=== PATIENT | female | born 1950 | race Caucasian/White ===

== ENCOUNTER 2016-12-21 19:00 | Emergency (ER) | payer MEDICARE ==
[~2016-12-21] VITALS: Ht 167.6 cm; Wt 93.0 kg
[2016-12-21 19:07] VITALS: BP 135/103; PULSE 75; RESP 18; TEMP 97.6; O2SAT 97
[2016-12-21] MEDS ORDERED: SODIUM CHLOR 0.9% 1000 ML INJ 1,000 ML IV SCH (19:39)
[2016-12-21] MEDS ORDERED: METOCLOPRAMIDE HCL 10 MG/2 ML VIAL IV PUSH ONE (19:45)
[2016-12-21] MEDS ORDERED: SODIUM CHLORIDE 0.9% FLUSH 10 ML FLUSH IV FLUSH PRN (19:45)
[2016-12-21 19:54] LABS: AUTOMATED NEUTROPHIL # 6.8 TH/MM3 (1.8-7.7); BASOPHIL # 0.1 TH/MM3 (0-0.2); BASOPHIL % 0.8 % (0.0-2.0); BLOOD, URINE MOD (NEG); EOSINOPHIL # 0.1 TH/MM3 (0-0.4); EOSINOPHIL % 1.2 % (0.0-4.0); GLUCOSE,URINE NEG (NEG); HEMATOCRIT 39.5 % (35.0-46.0); HEMO FLAGS DIFF FINAL; KETONE, URINE NEG (NEG); LYMPH % 17.8 % (9.0-44.0); LYMPHOCYTE # 1.6 TH/MM3 (1.0-4.8); MEAN CELL VOLUME 80.6 FL (80.0-100.0); MEAN CORPUSCULAR HEMOGLOBIN 26.8 PG (27.0-34.0); MEAN CORPUSCULAR HGB CONC 33.3 % (32.0-36.0); MONO % 4.6 % (0.0-8.0); NEUT % 75.6 % (16.0-70.0); NITRITE,URINE NEG (NEG); PH, URINE 5.5 (5.0-8.5); PLATELET COUNT 248 TH/MM3 (150-450); RED CELL DISTRIBUTION WIDTH 14.1 % (11.6-17.2)
[2016-12-21 19:55] LABS: URINE COLOR YELLOW (YELLW/STRAW)
[2016-12-21 20:02] VITALS: BP 173/84; PULSE 67; RESP 20; O2SAT 98
[2016-12-21 20:04] LABS: RBC, URINE 0-3 /hpf (0-3)
[2016-12-21 20:05] LABS: COMMENT (UR) CULTURE INDICATED; CULTURE IF INDICATED CULTURE INDICATED; HYALINE CAST, URINE 0-2 /lpf (RARE); MUCUS URINE MOD /lpf (OCC); WHITE BLOOD CELL CAST, URINE 0-2 /lpf
[2016-12-21 20:07] LABS: CHLORIDE 106 MEQ/L (98-107); POTASSIUM 3.6 MEQ/L (3.5-5.1); SODIUM (NA) 141 MEQ/L (136-145)
[2016-12-21 20:10] LABS: ANION GAP 8 MEQ/L (5-15); BICARBONATE 26.6 MEQ/L (21.0-32.0)
[2016-12-21 20:11] LABS: BLOOD UREA NITROGEN 14 MG/DL (7-18)
[2016-12-21 20:13] LABS: ALT (GPT) 35 U/L (10-53)
--- NOTE | 2016-12-21 20:13 | PD ---
HPI Chief Complaint: Dizziness Time Seen by Provider: 19:34 Travel History International Travel<30 days: No Contact w/Intl Traveler<30days: No Traveled to known affect area: No History of Present Illness HPI 66-year-old female here for evaluation of dizziness/lightheadedness, nausea, vomiting, and right ear pain. The patient experienced these symptoms yesterday evening and again this evening after a full day at work. Patient describes more lightheadedness and dizziness. She had several episodes of vomiting earlier today. She has not yet had diarrhea, but feels as though she may start having loose bowel movements. No abdominal pain. No fevers. No chest pain or dyspnea. No urinary symptoms. Patient reports pain in her right ear that has been intermittent since July of this year. FORMERLY [facility] Past Medical History Diminished Hearing: No Gastrointestinal Disorders: Yes (ESOPHAGEAL STRICTURE) Hypertension: Yes Tetanus Vaccination: Unknown Influenza Vaccination: Yes ?: Not Menopausal: Yes : 4 Para: 4 Past Surgical History Surgical History: No Previous Surgery Other Surgery: Yes (ESOPHAGEAL STRETCHING) Social History Alcohol Use: No Tobacco Use: No Substance Use: No Allergies-Medications (Allergen,Severity, Reaction): Coded Allergies: No Known Allergies (Verified , 12/21/16) Reported Meds & Prescriptions Reported Meds & Active Scripts Active No Active Prescriptions or Reported Medications Review of Systems Except as stated in HPI: all other systems reviewed are Neg Physical Exam Narrative GENERAL: Well-developed, well-nourished, awake, alert, comfortable, no acute distress. SKIN: Focused skin assessment warm/dry. No rash. No pallor. HEAD: Atraumatic. Normocephalic. EYES: Pupils equal and round. No scleral icterus. No injection or drainage. ENT: Mucous membranes pink and moist. Bilateral tympanic members and external auditory canals are normal. NECK: Trachea midline. No JVD. No nuchal rigidity. CARDIOVASCULAR: Regular rate and rhythm. No murmur appreciated. RESPIRATORY: No accessory muscle use. Clear to auscultation. Breath sounds equal bilaterally. GASTROINTESTINAL: Abdomen soft, non-tender, nondistended. MUSCULOSKELETAL: No obvious deformities. No clubbing. No cyanosis. No edema. NEUROLOGICAL: Awake and alert. No obvious cranial nerve deficits. Motor grossly within normal limits. Normal speech. No focal deficit. PSYCHIATRIC: Appropriate mood and affect; insight and judgment normal. Data Data Last Documented VS Vital Signs Date Time Temp Pulse Resp B/P Pulse Ox O2 Delivery O2 Flow Rate FiO2 12/21/16 20:52 67 20 161/77 12/21/16 20:06 97 12/21/16 19:07 97.6 Orders Complete Blood Count With Diff (12/21/16 19:39) Comprehensive Metabolic Panel (12/21/16 19:39) Urinalysis - C+S If Indicated (12/21/16 19:39) Iv Access Insert/Monitor (12/21/16 19:39) Ecg Monitoring (12/21/16 19:39) Oximetry (12/21/16 19:39) Sodium Chlor 0.9% 1000 Ml Inj (Ns 1000 M (12/21/16 19:39) Sodium Chloride 0.9% Flush (Ns Flush) (12/21/16 19:45) Electrocardiogram (12/21/16 19:39) Metoclopramide Inj (Reglan Inj) (12/21/16 19:45) Ct Brain W/O Iv Contrast(Rout) (12/21/16 ) Urine Culture (12/21/16 19:50) Ceftriaxone Inj (Rocephin Inj) (12/21/16 20:15) Ondansetron Inj (Zofran Inj) (12/21/16 21:15) Labs Laboratory Tests Test 12/21/16 19:50 White Blood Count 9.0 TH/MM3 Red Blood Count 4.90 MIL/MM3 Hemoglobin 13.1 GM/DL Hematocrit 39.5 % Mean Corpuscular Volume 80.6 FL Mean Corpuscular Hemoglobin 26.8 PG Mean Corpuscular Hemoglobin 33.3 % Concent Red Cell Distribution Width 14.1 % Platelet Count 248 TH/MM3 Mean Platelet Volume 7.9 FL Neutrophils (%) (Auto) 75.6 % Lymphocytes (%) (Auto) 17.8 % Monocytes (%) (Auto) 4.6 % Eosinophils (%) (Auto) 1.2 % Basophils (%) (Auto) 0.8 % Neutrophils # (Auto) 6.8 TH/MM3 Lymphocytes # (Auto) 1.6 TH/MM3 Monocytes # (Auto) 0.4 TH/MM3 Eosinophils # (Auto) 0.1 TH/MM3 Basophils # (Auto) 0.1 TH/MM3 CBC Comment DIFF FINAL Differential Comment Urine Color YELLOW Urine Turbidity CLEAR Urine pH 5.5 Urine Specific [place] 1.025 Urine Protein 30 mg/dL Urine Glucose (UA) NEG mg/dL Urine Ketones NEG mg/dL Urine Occult Blood MOD Urine Nitrite NEG Urine Bilirubin NEG Urine Leukocyte Esterase SMALL Urine RBC 0-3 /hpf Urine WBC 9-14 /hpf Urine Squamous Epithelial 6-8 /hpf Cells Urine Hyaline Casts 0-2 /lpf Urine White Blood Cell Casts 0-2 /lpf Urine Mucus MOD /lpf Microscopic Urinalysis Comment CULTURE INDICATED Sodium Level 141 MEQ/L Potassium Level 3.6 MEQ/L Chloride Level 106 MEQ/L Carbon Dioxide Level 26.6 MEQ/L Anion Gap 8 MEQ/L Blood Urea Nitrogen 14 MG/DL Creatinine 0.98 MG/DL Estimat Glomerular Filtration 57 ML/MIN Rate Random Glucose 106 MG/DL Calcium Level 9.7 MG/DL Total Bilirubin 0.4 MG/DL Aspartate Amino Transf 25 U/L (AST/SGOT) Alanine Aminotransferase 35 U/L (ALT/SGPT) Alkaline Phosphatase 152 U/L Total Protein 7.2 GM/DL Albumin 3.8 GM/DL [facility] Medical Decision Making Medical Screen Exam Complete: Yes Emergency Medical Condition: Yes Interpretation(s) EKG: Sinus, rate 67, normal axis, normal intervals, no acute ischemic abnormality. Differential Diagnosis Metabolic abnormality, intracranial abnormality, UTI, anemia, dehydration Narrative Course Initial vital signs show heart rate 75, blood pressure 135/103, pulse ox 97% on room air, oral temp of 97.6F. CBC is unremarkable. CMP is unremarkable. UA shows 30 protein, moderate occult blood, small leukocyte esterase, 9-14 wbc's , 6-8 squamous epithelial cells, moderate mucus, culture indicated. CT head: No acute intracranial abnormality. The patient was given a liter of normal saline IV, IV Reglan, IV Zofran, and a dose of IV Rocephin. On reassessment she is feeling improved. She is tolerating clear liquids in the emergency department. She is concerned about having possible gastric ulcers and is requesting a prescription for aciphex which I will gladly write for her. I will also give her prescription for Macrobid as well as Zofran. Patient is stable for discharge home with outpatient follow-up with a primary care physician this week. She was informed on when to return to the emergency department. She verbalizes understanding and agreement with plan. Diagnosis Primary Impression: UTI (urinary tract infection) Qualified Code: N39.0 - Urinary tract infection with hematuria, site unspecified Additional Impressions: Lightheadedness Nausea and vomiting Qualified Code: R11.2 - Non-intractable vomiting with nausea, unspecified vomiting type Referrals: Primary Care Physician 3 days Additional Instructions: Follow-up with a primary care physician this week. Take medications as prescribed. Return to the emergency department for worsening symptoms or any other concerns. Scripts Ondansetron Odt (Zofran Odt)4 Mg Tab4 Mg SL Q8HR PRN (Nausea/Vomiting) #30 TAB Ref 0 Prov:Addison Dunlap MD 12/21/16 Nitrofurantoin Monohydrate Macrocrystals (Macrobid)100 Mg [id number] Mg PO BID 5 Days Ref 0 Prov:Addison Dunlap MD 12/21/16 Rabeprazole (Aciphex)20 Mg Tab20 Mg PO DAILY #30 TAB Ref 0 Prov:Addison Dunlap MD 12/21/16 Disposition: 01 DISCHARGE HOME Condition: Stable Addison Dunlap MD Dec 21, 2016 20:13
[2016-12-21 20:14] LABS: AST (GOT) 25 U/L (15-37); GLOMERULAR FILTRATION RATE 57 ML/MIN (>89)
[2016-12-21 20:15] LABS: TOTAL BILIRUBIN ADULT 0.4 MG/DL (0.2-1.0)
[2016-12-21] MEDS ORDERED: cefTRIAXone INJ 1,000 MG in SODIUM CHLORIDE 0.9% INJ 100 ML IV ONE (20:15)
[2016-12-21 20:16] LABS: ALKALINE PHOSPHATASE 152 U/L (45-117)
--- NOTE | 2016-12-21 20:30 | RADHPO ---
EXAM DATE/TIME: 12/21/2016 20:03 [facility] COMPARISON: No previous studies available for comparison. INDICATIONS : Patient complains of headache and dizziness. RADIATION DOSE: 68.43 CTDIvol (mGy) MEDICAL HISTORY : Hypertension. Ulcers. esphogeal stricture SURGICAL HISTORY : esphogeal stretching ENCOUNTER: Initial ACUITY: 1 day PAIN SCALE: 8/10 LOCATION: cranial TECHNIQUE: Multiple contiguous axial images were obtained of the head. Using automated exposure control and adj ustment of the mA and/or kV according to patient size, radiation dose was kept as low as reasonably a chievable to obtain optimal diagnostic quality images. FINDINGS: CEREBRUM: The ventricles are normal for age. No evidence of midline shift, mass lesion, hemorrhage or acute in farction. No extra-axial fluid collections are seen. POSTERIOR FOSSA: The cerebellum and brainstem are intact. The 4th ventricle is midline. The cerebellopontine angle i s unremarkable. EXTRACRANIAL: The visualized portion of the orbits is intact. SKULL: The calvaria is intact. No evidence of skull fracture. CONCLUSION: No acute intracranial abnormality. Efren Hernandes MD on December 21, 2016 at 20:27 Board Certified Radiologist. This report was verified electronically.
[2016-12-21 20:52] VITALS: BP 161/77; PULSE 67; RESP 20
[2016-12-21] MEDS ORDERED: ONDANSETRON HCL 4 MG/2 ML VIAL IV PUSH ONE (21:15)
[2016-12-21] MEDS ORDERED: ZOFR4TAB3 SL (21:26)
[2016-12-21] MEDS ORDERED: MACR100C2 PO (21:26)
[2016-12-21] MEDS ORDERED: ACIP20TA6 PO (21:26)
[2016-12-21 21:38] VITALS: BP 153/81
--- NOTE | 2016-12-22 15:26 | EKG ---
Date Performed: 12/21/2016 Time Performed: 19:58:32 PTAGE: 66 years EKG: Sinus rhythm NORMAL ECG Compared to prior tracing no significant change PREVIOUS TRACING : 06/17/2016 08.30 DOCTOR: Raghavendra De La Vega Interpretating Date/Time 12/22/2016 15:25:27
== END 2016-12-21 21:40 | disposition home or self-care (01) ==
LOC: PHED 19:00
DX: N39.0 Urinary tract infection, site not specified (principal); R42 Dizziness and giddiness; R11.2 Nausea with vomiting, unspecified; B96.20 Unspecified Escherichia coli [E. coli] as the cause of diseases classified elsewhere; I10 Essential (primary) hypertension
CPT/HCPCS: 70450; 80053; 81001; 85025; 87077; 87086; 87186; 93005; 96365; 96375; 99285; J0696; J2405; J2765; J7030

== ENCOUNTER 2017-02-10 06:12 | Emergency (ER) | payer MEDICARE ==
[~2017-02-10] VITALS: Ht 167.6 cm; Wt 91.6 kg
[~2017-02-10 06:12] MED LIST: ACIP20TA6 PO; MACR100C2 PO; ZOFR4TAB3 SL
[2017-02-10 06:17] VITALS: BP 170/81; PULSE 61; RESP 14; TEMP 98; O2SAT 98
[2017-02-10] MEDS ORDERED: COLY4000S PO (06:38)
[2017-02-10] MEDS ORDERED: PANT40TA3 PO (06:38)
[2017-02-10] MEDS ORDERED: SODIUM CHLORIDE 0.9% FLUSH 10 ML FLUSH IVF PRN (06:45)
[2017-02-10] MEDS ORDERED: ONDANSETRON HCL 4 MG/2 ML VIAL IVP ONE (06:45)
--- NOTE | 2017-02-10 06:46 | PD ---
HPI Chief Complaint: GI Complaint Time Seen by Provider: 06:37 Travel History International Travel<30 days: No Contact w/Intl Traveler<30days: No Traveled to known affect area: No History of Present Illness HPI 67-year-old female presents to the emergency department by private transportation in the care of significant other for evaluation of nausea, vomiting, diarrhea and dizziness. No bilious emesis, no coffee ground emesis, no hematemesis, no hematochezia, or melena. Patient reports that she has had nausea and dizziness for several months. Patient reports she was seen here for the same symptoms approximately 1 month ago everything was okay except she was diagnosed with a UTI. Patient was recently started in the care of a new primary care provider who she has seen within the last 2 weeks and reportedly is starting to evaluate her for her complaint of nausea and dizziness. Patient also states that she has chronic GI issues and is intolerant of change in her dietary intake. Patient states that she was scheduled for a colonoscopy this morning and as part of her bowel prep she was supposed to be on a clear liquid diet and instructed to take the GoLYTELY prep. Patient states that she could not tolerate the GoLYTELY prep as it caused her to be very nauseated and very dizzy after drinking only 40 ounces of the prep. Patient also has been very intolerant of not eating for the past 24 hours as she states this also has made her dizziness and nausea worse. Patient denies headache, change in mentation, visual disturbance, change in speech, facial droop, neck pain, chest pain, palpitations, shortness of breath, abdominal pain, or constipation, has noted some urinary frequency and dysuria, denies any flank pain or back pain, and denies any new upper or lower extremity numbness tingling or weakness. Patient states that she did fill as if she might faint this morning. Patient denies any fever or chills. Patient reports that the reason she was scheduled for colonoscopy this morning as that since June 2016 when she was diagnosed with esophageal stricture and esophageal ulcers she has had ongoing follow-up with gastroenterology and they recommended that she go through a colonoscopy. Patient has been very hesitant to go through the procedure. Patient has been anxious about having the procedure. PFSH Past Medical History Narrative Medical Esophageal stricture, esophageal ulcers; no surgeries; denies tobacco use or alcohol use; nursing notes reviewed Diminished Hearing: No Gastrointestinal Disorders: Yes (ESOPHAGEAL STRICTURE,ULCERS) Hypertension: Yes Tetanus Vaccination: Unknown Menopausal: Yes : 4 Para: 4 Past Surgical History Other Surgery: Yes (ESOPHAGEAL STRETCHING) Social History Alcohol Use: No Tobacco Use: No Substance Use: No Allergies-Medications (Allergen,Severity, Reaction): Coded Allergies: No Known Allergies (Verified , 12/21/16) Reported Meds & Prescriptions Reported Meds & Active Scripts Active Reported Golytely 236 gm (Polyethylene Glycol/Electrolytes) 4,000 Ml Soln 4,000 Ml PO ONCE Pantoprazole (Pantoprazole Sodium) 40 Mg Tab 40 Mg PO DAILY Review of Systems Except as stated in HPI: all other systems reviewed are Neg General / Constitutional: No: Fever, Chills Eyes: No: Visual changes HENT: Positive: Lightheadedness, No: Headaches, Congestion, Neck Stiffness, Neck Pain Cardiovascular: No: Chest Pain or Discomfort, Palpitations, Diaphoresis, Syncope Respiratory: No: Cough, Shortness of Breath, Wheezing Gastrointestinal: Positive: Nausea, No: Vomiting, Abdominal Pain, Hematemesis , Hematochezia Genitourinary: Positive: Frequency, Dysuria Musculoskeletal: No: Myalgias, Arthralgias Skin: No Rash Neurologic: Positive: Dizziness, No: Weakness, Syncope, Focal Abnormalities, Coordination Problem Psychiatric: Positive: Anxiety Endocrine: No: Heat Intolerance Hematologic/Lymphatic: No: Easy Bruising Physical Exam Narrative GENERAL: Well-developed well-nourished female in no acute distress no respiratory distress; GCS 15 SKIN: Warm and dry. HEAD: Atraumatic. Normocephalic. EYES: Pupils equal and round. No scleral icterus. No injection or drainage. ENT: No nasal bleeding or discharge. Mucous membranes pink and moist. NECK: Trachea midline. No JVD. CARDIOVASCULAR: Regular rate and rhythm. RESPIRATORY: No accessory muscle use. Clear to auscultation. Breath sounds equal bilaterally. GASTROINTESTINAL: Abdomen soft, non-tender, nondistended. Hepatic and splenic margins not palpable. MUSCULOSKELETAL: Extremities without clubbing, cyanosis, or edema. No obvious deformities. NEUROLOGICAL: Awake and alert. No obvious cranial nerve deficits. Motor grossly within normal limits. Five out of 5 muscle strength in the arms and legs. Normal speech. PSYCHIATRIC: Appropriate mood and affect; insight and judgment normal. Data Data Last Documented VS Vital Signs Date Time Temp Pulse Resp B/P Pulse Ox O2 Delivery O2 Flow Rate FiO2 02/10/17 06:17 98.0 61 14 170/81 98 Orders Electrocardiogram (02/10/17 06:37) Basic Metabolic Panel (Bmp) (02/10/17 06:37) Complete Blood Count With Diff (02/10/17 06:37) Magnesium (Mg) (02/10/17 06:37) Troponin I (02/10/17 06:37) Urinalysis - C+S If Indicated (02/10/17 06:37) Chest, Single Ap (02/10/17 06:37) Ecg Monitoring (02/10/17 06:37) Iv Access Insert/Monitor (02/10/17 06:37) Oximetry (02/10/17 06:37) Ondansetron Inj (Zofran Inj) (02/10/17 06:45) Sodium Chloride 0.9% Flush (Ns Flush) (02/10/17 06:45) Orthostatic Vital Signs (02/10/17 06:37) Labs Laboratory Tests Test 02/10/17 06:50 White Blood Count 7.6 TH/MM3 Red Blood Count 4.84 MIL/MM3 Hemoglobin 13.1 GM/DL Hematocrit 39.9 % Mean Corpuscular Volume 82.3 FL Mean Corpuscular Hemoglobin 27.0 PG Mean Corpuscular Hemoglobin 32.7 % Concent Red Cell Distribution Width 14.5 % Platelet Count 281 TH/MM3 Mean Platelet Volume 8.1 FL Neutrophils (%) (Auto) 74.2 % Lymphocytes (%) (Auto) 17.4 % Monocytes (%) (Auto) 5.0 % Eosinophils (%) (Auto) 1.6 % Basophils (%) (Auto) 1.8 % Neutrophils # (Auto) 5.7 TH/MM3 Lymphocytes # (Auto) 1.3 TH/MM3 Monocytes # (Auto) 0.4 TH/MM3 Eosinophils # (Auto) 0.1 TH/MM3 Basophils # (Auto) 0.1 TH/MM3 CBC Comment DIFF FINAL Differential Comment MDM Medical Decision Making Medical Screen Exam Complete: Yes Emergency Medical Condition: Yes Medical Record Reviewed: Yes Interpretation(s) EKG: sinus bradycardia rate [address] elevation or injury pattern or ectopy noted Differential Diagnosis Arrhythmia, electrolyte disturbance, ACS, TIA, UTI, thyroid dysfunction, vasovagal near syncope Narrative Course Patient placed on monitor EKG performed IV access obtained specimens collected and sent for resulting orthostatic measurements performed. Patient administered Zofran for nausea. No focality identified on physical exam abdomen soft nontender. Care signed over to Miley German MD Feb 10, 2017 06:46
[2017-02-10 07:06] LABS: AUTOMATED NEUTROPHIL # 5.7 TH/MM3 (1.8-7.7); BASOPHIL # 0.1 TH/MM3 (0-0.2); BASOPHIL % 1.8 % (0.0-2.0); EOSINOPHIL # 0.1 TH/MM3 (0-0.4); EOSINOPHIL % 1.6 % (0.0-4.0); HEMATOCRIT 39.9 % (35.0-46.0); HEMO FLAGS DIFF FINAL; LYMPH % 17.4 % (9.0-44.0); LYMPHOCYTE # 1.3 TH/MM3 (1.0-4.8); MEAN CELL VOLUME 82.3 FL (80.0-100.0); MEAN CORPUSCULAR HGB CONC 32.7 % (32.0-36.0); NEUT % 74.2 % (16.0-70.0); PLATELET COUNT 281 TH/MM3 (150-450); RED BLOOD COUNT 4.84 MIL/MM3 (4.00-5.30); RED CELL DISTRIBUTION WIDTH 14.5 % (11.6-17.2); WHITE BLOOD COUNT 7.6 TH/MM3 (4.0-11.0)
[2017-02-10 07:09] VITALS: BP_SYST 133; BP_SYST 134; BP_SYST 141; BP_DIAS 71; BP_DIAS 74; BP_DIAS 77; RESP 16; RESP 18
[2017-02-10 07:13] VITALS: BP 141/71; PULSE 65; RESP 16; O2SAT 94
[2017-02-10 07:14] VITALS: RESP 18; O2SAT 94
[2017-02-10 07:16] LABS: CHLORIDE 109 MEQ/L (98-107); POTASSIUM 4.6 MEQ/L (3.5-5.1); SODIUM (NA) 141 MEQ/L (136-145)
[2017-02-10 07:20] LABS: ANION GAP 6 MEQ/L (5-15); BICARBONATE 25.9 MEQ/L (21.0-32.0); BLOOD UREA NITROGEN 9 MG/DL (7-18); MAGNESIUM 1.9 MG/DL (1.5-2.5)
--- NOTE | 2017-02-10 07:20 | RADRPT ---
EXAM DATE/TIME: 02/10/2017 07:02 [facility] COMPARISON: CHEST SINGLE AP, June 17, 2016, 0:23. INDICATIONS : Nausea, vomiting, dizziness, palpations. MEDICAL HISTORY : Hypertension. Esophageal strictures/ulcers. SURGICAL HISTORY : Esophageal dilitation. ENCOUNTER: Initial ACUITY: 2 days PAIN SCORE: 0/10 LOCATION: chest FINDINGS: A single view of the chest demonstrates the lungs to be symmetrically aerated without evidence of mas s, infiltrate or effusion. The cardiomediastinal contours are unremarkable. Osseous structures are intact. CONCLUSION: No acute disease. Mk Valentin MD on February 10, 2017 at 7:19 Board Certified Radiologist. This report was verified electronically.
[2017-02-10 07:23] LABS: GLOMERULAR FILTRATION RATE 56 ML/MIN (>89)
[2017-02-10 07:44] LABS: BLOOD, URINE TRACE (NEG); GLUCOSE,URINE NEG (NEG); KETONE, URINE NEG (NEG); NITRITE,URINE NEG (NEG); PH, URINE 6.5 (5.0-8.5)
[2017-02-10 07:50] LABS: METHOD OF COLLECTION VOIDED; URINE COLOR STRAW (YELLW/STRAW)
[2017-02-10 07:51] LABS: WBC, URINE 0-2 /hpf (0-5)
[2017-02-10 07:52] LABS: BACTERIA, URINE FEW /hpf; COMMENT (UR) CULT NOT INDICATED; CULTURE IF INDICATED CULT NOT INDICATED; HYALINE CAST, URINE 0-1 /lpf (RARE); SQUAMOUS EPITHELIAL CELL URINE 0-3 /hpf (0-5)
[2017-02-10] MEDS ORDERED: ZOFR4TAB3 SL (07:59)
--- NOTE | 2017-02-10 08:00 | PD ---
Data Data Last Documented VS Vital Signs Date Time Temp Pulse Resp B/P Pulse Ox O2 Delivery O2 Flow Rate FiO2 02/10/17 07:14 18 94 Room Air 02/10/17 07:13 65 141/71 02/10/17 06:17 98.0 Orders Electrocardiogram (02/10/17 06:37) Basic Metabolic Panel (Bmp) (02/10/17 06:37) Complete Blood Count With Diff (02/10/17 06:37) Magnesium (Mg) (02/10/17 06:37) Troponin I (02/10/17 06:37) Urinalysis - C+S If Indicated (02/10/17 06:37) Chest, Single Ap (02/10/17 06:37) Ecg Monitoring (02/10/17 06:37) Iv Access Insert/Monitor (02/10/17 06:37) Oximetry (02/10/17 06:37) Ondansetron Inj (Zofran Inj) (02/10/17 06:45) Sodium Chloride 0.9% Flush (Ns Flush) (02/10/17 06:45) Orthostatic Vital Signs (02/10/17 06:37) Labs Laboratory Tests Test 02/10/17 02/10/17 06:50 07:35 White Blood Count 7.6 TH/MM3 Red Blood Count 4.84 MIL/MM3 Hemoglobin 13.1 GM/DL Hematocrit 39.9 % Mean Corpuscular Volume 82.3 FL Mean Corpuscular Hemoglobin 27.0 PG Mean Corpuscular Hemoglobin 32.7 % Concent Red Cell Distribution Width 14.5 % Platelet Count 281 TH/MM3 Mean Platelet Volume 8.1 FL Neutrophils (%) (Auto) 74.2 % Lymphocytes (%) (Auto) 17.4 % Monocytes (%) (Auto) 5.0 % Eosinophils (%) (Auto) 1.6 % Basophils (%) (Auto) 1.8 % Neutrophils # (Auto) 5.7 TH/MM3 Lymphocytes # (Auto) 1.3 TH/MM3 Monocytes # (Auto) 0.4 TH/MM3 Eosinophils # (Auto) 0.1 TH/MM3 Basophils # (Auto) 0.1 TH/MM3 CBC Comment DIFF FINAL Differential Comment Sodium Level 141 MEQ/L Potassium Level 4.6 MEQ/L Chloride Level 109 MEQ/L Carbon Dioxide Level 25.9 MEQ/L Anion Gap 6 MEQ/L Blood Urea Nitrogen 9 MG/DL Creatinine 0.99 MG/DL Estimat Glomerular Filtration 56 ML/MIN Rate Random Glucose 98 MG/DL Calcium Level 9.6 MG/DL Magnesium Level 1.9 MG/DL Troponin I LESS THAN 0.02 NG/ML Urine Collection Type VOIDED Urine Color STRAW Urine Turbidity CLEAR Urine pH 6.5 Urine Specific [place] 1.005 Urine Protein NEG mg/dL Urine Glucose (UA) NEG mg/dL Urine Ketones NEG mg/dL Urine Occult Blood TRACE Urine Nitrite NEG Urine Bilirubin NEG Urine Leukocyte Esterase NEG Urine WBC 0-2 /hpf Urine Squamous Epithelial 0-3 /hpf Cells Urine Bacteria FEW /hpf Urine Hyaline Casts 0-1 /lpf Microscopic Urinalysis Comment CULT NOT INDICATED MDM Supervised Visit with LADAN: No Narrative Course This 67-year-old woman presents to the emergency department complaining of nausea vomiting diarrhea and dizziness after she did her GoLYTELY prep for her endoscopy today. She's had a history of GI symptoms and sensitive stomach. She was initially evaluated by Dr. Laguerre, and signed out to me to follow-up on the results of imaging. Past medical history includes: Esophageal stricture, esophageal ulcers; no surgeries. Studies show: CBC is unremarkable. BMP is unremarkable. Troponins negative. Coags are unremarkable. Chest x-rays negative. On repeat assessment, patient is improved with stool just a little bit of nausea. We'll give a prescription for Zofran, follow-up with GI. Diagnosis Primary Impression: Lightheadedness Additional Impression: Nausea and vomiting Additional Instruction: Use Zofran if needed for nausea or vomiting. Follow-up with her GI doctor next week. Return to the emergency department for any new or worsening symptoms. Med/Other Pt SpecificInfo: Prescription(s) given Scripts Ondansetron Odt (Zofran Odt)4 Mg Tab4 Mg SL Q8HR PRN (Nausea/Vomiting) #15 TAB May substitute non-ODT form. Prov:Alvarez Comer MD 02/10/17 Disposition: 01 DISCHARGE HOME Condition: Stable Alvarez Comer MD Feb 10, 2017 08:00
[2017-02-10 08:43] VITALS: BP 136/71; PULSE 64; RESP 16; O2SAT 94
--- NOTE | 2017-02-10 10:15 | EKG ---
Date Performed: 02/10/2017 Time Performed: 06:54:52 PTAGE: 67 years EKG: SINUS BRADYCARDIA BORDERLINE ECG Since PREVIOUS TRACING , no significant change noted PREVIOUS TRACIN12/21/2016 19.58 DOCTOR: Cornelius Liang Interpretating Date/Time 02/10/2017 10:13:55
== END 2017-02-10 08:59 | disposition home or self-care (01) ==
LOC: PHED 06:12
DX: R42 Dizziness and giddiness (principal); R11.2 Nausea with vomiting, unspecified; R19.7 Diarrhea, unspecified; R35.0 Frequency of micturition; R30.0 Dysuria; R94.31 Abnormal electrocardiogram [ECG] [EKG]; I10 Essential (primary) hypertension; Z87.19 Personal history of other diseases of the digestive system
CPT/HCPCS: 71010; 80048; 81001; 83735; 84484; 85025; 93005; 96374; 99285; J2405

== ENCOUNTER 2017-05-01 15:04 | Observation (INO) | payer MEDICARE ==
[2017-05-01] VITALS (8 sets, daily range): BP systolic 120–175; BP diastolic 58–95; PULSE 66–119; RESP 18–20; TEMP 98.6; O2SAT 97–100
[~2017-05-01] VITALS: Ht 167.6 cm; Wt 96.7 kg
[~2017-05-01 15:04] MED LIST changes: -ACIP20TA6 PO; +COLY4000S PO; -MACR100C2 PO; +PANT40TA3 PO
[2017-05-01] MEDS ORDERED: ONDANSETRON HCL 4 MG/2 ML VIAL ONE (15:24)
[2017-05-01] MEDS ORDERED: SODIUM CHLOR 0.9% 1000 ML INJ 1,000 ML IV ONE ×2 (15:42→15:45)
[2017-05-01] MEDS ORDERED: SODIUM CHLORIDE 0.9% FLUSH 10 ML FLUSH IVF PRN (15:45)
[2017-05-01] MEDS ORDERED: PROCHLORPERAZINE INJ 10 MG/2 ML VIAL IVP ONE (15:45)
[2017-05-01] MEDS ORDERED: RESP: SODIUM CHLORIDE 0.9% 5 ML NEB NEB ONE (16:00)
[2017-05-01 16:11] LABS: AUTOMATED NEUTROPHIL # 4.8 TH/MM3 (1.8-7.7); BASOPHIL # 0.1 TH/MM3 (0-0.2); BASOPHIL % 0.8 % (0.0-2.0); EOSINOPHIL # 0.1 TH/MM3 (0-0.4); EOSINOPHIL % 0.7 % (0.0-4.0); HEMATOCRIT 42.2 % (35.0-46.0); HEMO FLAGS DIFF FINAL; LYMPH % 44.1 % (9.0-44.0); LYMPHOCYTE # 4.5 TH/MM3 (1.0-4.8); MEAN CELL VOLUME 81.8 FL (80.0-100.0); MEAN CORPUSCULAR HEMOGLOBIN 27.1 PG (27.0-34.0); MEAN CORPUSCULAR HGB CONC 33.1 % (32.0-36.0); MONO % 7.4 % (0.0-8.0); PLATELET COUNT 307 TH/MM3 (150-450); RED BLOOD COUNT 5.16 MIL/MM3 (4.00-5.30); RED CELL DISTRIBUTION WIDTH 15.6 % (11.6-17.2); WHITE BLOOD COUNT 10.1 TH/MM3 (4.0-11.0)
--- NOTE | 2017-05-01 16:22 | RADRPT ---
EXAM DATE/TIME: 05/01/2017 16:03 [facility] COMPARISON: CHEST SINGLE AP, February 10, 2017, 7:02. INDICATIONS : Chest pain MEDICAL HISTORY : Hypertension. Esophageal strictures/ulcers. SURGICAL HISTORY : None. Esophageal dilitation ENCOUNTER: Initial ACUITY: 4 - 6 days PAIN SCORE: 0/10 LOCATION: chest FINDINGS: A single view of the chest demonstrates the lungs to be symmetrically aerated without evidence of mas s, infiltrate or effusion. The cardiomediastinal contours are unremarkable. Remainder of exam is unc hanged. CONCLUSION: 1. No acute abnormality or significant interval change. Otto Olsen MD on May 01, 2017 at 16:20 Board Certified Radiologist. This report was verified electronically.
[2017-05-01 16:23] LABS: APTT (PATIENT) 23.6 SEC (24.3-30.1); INTERNATIONAL NORMALIZED RATIO 0.9 RATIO; PROTHROMBIN TIME - PATIENT 9.9 SEC (9.8-11.6)
[2017-05-01 16:28] LABS: ALT (GPT) 37 U/L (10-53); ANION GAP 10 MEQ/L (5-15); AST (GOT) 23 U/L (15-37); BICARBONATE 22.5 MEQ/L (21.0-32.0); BLOOD UREA NITROGEN 14 MG/DL (7-18); CHLORIDE 106 MEQ/L (98-107); GLOMERULAR FILTRATION RATE 59 ML/MIN (>89); POTASSIUM 3.2 MEQ/L (3.5-5.1); SODIUM (NA) 138 MEQ/L (136-145)
[2017-05-01 16:30] LABS: ALKALINE PHOSPHATASE 176 U/L (45-117); TOTAL BILIRUBIN ADULT 0.4 MG/DL (0.2-1.0)
[2017-05-01 16:31] LABS: CREATINE KINASE 119 U/L (26-192)
--- NOTE | 2017-05-01 16:41 | PD ---
HPI Chief Complaint: GI Complaint Time Seen by Provider: 15:42 Travel History International Travel<30 days: No Contact w/Intl Traveler<30days: No Traveled to known affect area: No History of Present Illness HPI Patient 67 years old. She arrives due to nausea and a generalized sensation of feeling sick. She reports exposure to urethane fumes. The patient is 67 years old. She arrives due to exposure to urethane fumes. She complains of nausea and a general sensation of feeling sick, evidently quite severe. She has no chest pain or shortness of breath however has been vomiting since arrival. Exposure occurred about 30 minutes prior to ER evaluation. Timing constant. Onset sudden. PFSH Past Medical History Diminished Hearing: No Gastrointestinal Disorders: Yes (ESOPHAGEAL STRICTURE, STOMACH ULCERS) Hypertension: Yes Tetanus Vaccination: Unknown Influenza Vaccination: No Menopausal: Yes : 4 Para: 4 Past Surgical History Other Surgery: Yes (ESOPHAGEAL STRETCHING) Social History Alcohol Use: No Tobacco Use: No Substance Use: No Allergies-Medications (Allergen,Severity, Reaction): Coded Allergies: No Known Allergies (Verified , 12/21/16) Reported Meds & Prescriptions Reported Meds & Active Scripts Active Zofran Odt (Ondansetron Odt) 4 Mg Tab 4 Mg SL Q8HR PRN May substitute non-ODT form. Reported Golytely 236 gm (Polyethylene Glycol/Electrolytes) 4,000 Ml Soln 4,000 Ml PO ONCE Pantoprazole (Pantoprazole Sodium) 40 Mg Tab 40 Mg PO DAILY Review of Systems Except as stated in HPI: all other systems reviewed are Neg General / Constitutional: No: Fever Gastrointestinal: Positive: Nausea, Vomiting Physical Exam Narrative GENERAL: 67-year-old female pleasant well-nourished well-developed, moderate distress secondary nausea and vomiting SKIN: Focused skin assessment warm/dry. HEAD: Atraumatic. Normocephalic. EYES: Pupils equal and round. No scleral icterus. No injection or drainage. ENT: No nasal bleeding or discharge. Mucous membranes pink and moist. NECK: Trachea midline. No JVD. CARDIOVASCULAR: Regular rate and rhythm. No murmur appreciated. RESPIRATORY: No accessory muscle use. Clear to auscultation. Breath sounds equal bilaterally. GASTROINTESTINAL: Abdomen soft, non-tender, nondistended. Hepatic and splenic margins not palpable. MUSCULOSKELETAL: No obvious deformities. No clubbing. No cyanosis. No edema. NEUROLOGICAL: Awake and alert. No obvious cranial nerve deficits. Motor grossly within normal limits. Normal speech. PSYCHIATRIC: Appropriate mood and affect; insight and judgment normal. Data Data Last Documented VS Vital Signs Date Time Temp Pulse Resp B/P (MAP) Pulse Ox O2 Delivery O2 Flow Rate FiO2 05/01/17 17:25 119 18 149/69 (95) 98 Nasal Cannula 2.00 05/01/17 15:19 98.6 Orders Orders Ondansetron Inj (Zofran Inj) (05/01/17 15:24) Complete Blood Count With Diff (05/01/17 15:42) Comprehensive Metabolic Panel (05/01/17 15:42) Ecg Monitoring (05/01/17 15:42) Iv Access Insert/Monitor (05/01/17 15:42) Oximetry (05/01/17 15:42) Sodium Chloride 0.9% Flush (Ns Flush) (05/01/17 15:45) Prochlorperazine Inj (Compazine Inj) (05/01/17 15:45) Sodium Chlor 0.9% 1000 Ml Inj (Ns 1000 M (05/01/17 15:42) Sodium Chlor 0.9% 1000 Ml Inj (Ns 1000 M (05/01/17 15:45) Call Poison Control (05/01/17 15:42) Bedside Glucose DEEDEE.CSUGAR (05/01/17 15:42) Chest, Single Ap (05/01/17 15:52) Ckmb (Isoenzyme) Profile (05/01/17 15:52) Prothrombin Time / Inr (Pt) (05/01/17 15:52) Act Partial Throm Time (Ptt) (05/01/17 15:52) Troponin I (05/01/17 15:52) Sodium Chloride 0.9% Neb (Sodium Chlorid (05/01/17 16:00) CKMB (05/01/17 15:30) CKMB% (05/01/17 15:30) Promethazine Inj (Phenergan Inj) (05/01/17 16:45) Diltiazem Inj (Cardizem Inj) (05/01/17 17:30) Labs Laboratory Tests Test 05/01/17 15:30 White Blood Count 10.1 TH/MM3 Red Blood Count 5.16 MIL/MM3 Hemoglobin 14.0 GM/DL Hematocrit 42.2 % Mean Corpuscular Volume 81.8 FL Mean Corpuscular Hemoglobin 27.1 PG Mean Corpuscular Hemoglobin Concent 33.1 % Red Cell Distribution Width 15.6 % Platelet Count 307 TH/MM3 Mean Platelet Volume 8.2 FL Neutrophils (%) (Auto) 47.0 % Lymphocytes (%) (Auto) 44.1 % Monocytes (%) (Auto) 7.4 % Eosinophils (%) (Auto) 0.7 % Basophils (%) (Auto) 0.8 % Neutrophils # (Auto) 4.8 TH/MM3 Lymphocytes # (Auto) 4.5 TH/MM3 Monocytes # (Auto) 0.7 TH/MM3 Eosinophils # (Auto) 0.1 TH/MM3 Basophils # (Auto) 0.1 TH/MM3 CBC Comment DIFF FINAL Differential Comment Prothrombin Time 9.9 SEC Prothromb Time International Ratio 0.9 RATIO Activated Partial Thromboplast Time 23.6 SEC Blood Urea Nitrogen 14 MG/DL Creatinine 0.95 MG/DL Random Glucose 110 MG/DL Total Protein 7.8 GM/DL Albumin 4.1 GM/DL Calcium Level 9.8 MG/DL Alkaline Phosphatase 176 U/L Aspartate Amino Transf (AST/SGOT) 23 U/L Alanine Aminotransferase (ALT/SGPT) 37 U/L Total Bilirubin 0.4 MG/DL Sodium Level 138 MEQ/L Potassium Level 3.2 MEQ/L Chloride Level 106 MEQ/L Carbon Dioxide Level 22.5 MEQ/L Anion Gap 10 MEQ/L Estimat Glomerular Filtration Rate 59 ML/MIN Total Creatine Kinase 119 U/L Creatine Kinase MB 1.1 NG/ML Troponin I LESS THAN 0.02 NG/ML MDM Medical Decision Making Medical Screen Exam Complete: Yes Emergency Medical Condition: Yes Differential Diagnosis Toxin exposure, arrhythmia, coronary artery disease Narrative Course CBC & BMP Diagram 05/01/17 15:30 Total Protein 7.8, Albumin 4.1, Calcium Level 9.8, Alkaline Phosphatase 176 H, Aspartate Amino Transf (AST/SGOT) 23, Alanine Aminotransferase (ALT/SGPT) 37, Total Bilirubin 0.4 Tn < 0.02 EKG: afib rate 126 Compazine and phenrgan for n/v diltiazem for afib admission for evaluation of afib w rvr d/w Dr Hawkins for FMR. Critical Care Narrative Aggregate critical care time was 40 minutes. Time to perform other separately billable procedures was not included in the critical care time. My time did not include minutes spent treating any other patients simultaneously or on activities that did not directly contribute to the patient's treatment. The services I provided to this patient were to treat and/or prevent clinically significant deterioration that could result in: Cardiopulmonary arrest I provided critical care services requiring my management, as noted below: Chart data review, documentation time, medication orders and management, vital sign assessments/reviewing monitor data, ordering and reviewing lab tests, ordering and interpreting/reviewing x-rays and diagnostic studies, care of the patient and discussion of the patient with the admitting physicians. Diagnosis Primary Impression: Exposure Qualified Codes: T75.89XA - Other specified effects of external causes, initial encounter Additional Impression: Atrial fibrillation with RVR Admitting Information Admitting Physician Requests: Sukhi Galeas MD May 01, 2017 16:41
[2017-05-01 16:43] LABS: CKMB 1.1 NG/ML (0.5-3.6)
[2017-05-01] MEDS ORDERED: PROMETHAZINE INJ 25 MG/ML VIAL IM ONE (16:45)
[2017-05-01] MEDS ORDERED: DILTIAZEM HCL 25 MG/5 ML VIAL IV ONE (17:30)
--- NOTE | 2017-05-01 18:10 | HHI.HP ---
[facility] Service Family Medicine Primary Care Physician Ivelisse Malik MD Admission Diagnosis Diagnoses: International Travel<30 Days: No Contact w/Intl Traveler<30days: No Known Affected Area: No History of Present Illness Patient is a 67 y/o F w/hx of GERD presenting with nausea, vomiting, and tachycardia. 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 States she was in the "paint room" early this afternoon and stood among some painters using a urethane product. States she was "there for hours." She then immediately started vomiting what appeared to be food she had eaten earlier. Describes it as a large volume of vomit that "wouldn't stop." Endorses feeling confused, cold, and "sick." No changes in vision, headache, tremor, palpitations, lightheadedness, or shortness of breath. Was concerned about her vomiting because of a history of esophageal ulcers so she went to the ED. Sees a PCP in [facility], does not remember the name. Does not have a apparel cutter, no prior hx of heart disease or AR. In the ED, troponins were found to be < 0.02. EKG showed afib w/RVR at a rate of 126. Received Compazine and phenrgan x1 and diltiazem x1. HR improved to 106. (Sharon Arango MD R1) Review of Systems Constitutional: COMPLAINS OF: Diaphoretic episodes, DENIES: Dizziness, Change in appetite Endocrine: DENIES: Polydipsia, Polyuria Eyes: DENIES: Blurred vision, Vision loss Ears, nose, mouth, throat: DENIES: Hearing loss, Oral lesions Respiratory: DENIES: Cough, Shortness of breath Cardiovascular: DENIES: Chest pain, Palpitations, Lower Extremity Edema Gastrointestinal: DENIES: Abdominal pain, Diarrhea Genitourinary: DENIES: Urinary frequency, Urinary incontinence, Dysuria Musculoskeletal: DENIES: Joint pain, Muscle aches Integumentary: DENIES: Abnormal pigmentation, Pruritus Hematologic/lymphatic: DENIES: Bruising Immunologic/allergic: DENIES: Eczema Neurologic: DENIES: Headache, Localized weakness, Paresthesias Psychiatric: DENIES: Confusion, Mood changes (Sharon Arango MD R1) Past Family Social History Past Medical History GERD - takes pantoprazole Esophageal stricture - 2016, relieved by esophageal dilation Past Surgical History Esophageal dilation procedure in 2016 (Sharon Arango MD R1) Allergies: Coded Allergies: No Known Allergies (Verified , 12/21/16) Family History Father: age 62, kidney disease Mother: age 85, pneumonia Social History No smoking, ETOH or drug use (Sharon Arango MD R1) Physical Exam Vital Signs Vital Signs Date Time Temp Pulse Resp B/P (MAP) Pulse Ox O2 Delivery O2 Flow Rate FiO2 05/01/17 17:25 119 18 149/69 (95) 98 Nasal Cannula 2.00 05/01/17 16:43 106 20 139/81 (100) 97 Nasal Cannula 2.00 05/01/17 16:31 100 Nasal Cannula 2.00 05/01/17 15:56 100 Room Air 05/01/17 15:19 98.6 116 20 175/95 (121) 99 Physical Exam GENERAL: This is a pleasant, overweight lady who appears uncomfortable while sitting in bed. Is shivering. SKIN: Cool and dry. HEAD: Atraumatic. Normocephalic. EYES: Pupils equal round and reactive. Extraocular motions intact. No scleral icterus. No injection or drainage. ENT: Throat without erythema, tonsillar hypertrophy or exudate. Uvula midline. Airway patent. NECK: Trachea midline. CARDIOVASCULAR: Irregular rhythm, tachycardic without murmurs, gallops, or rubs. RESPIRATORY: Clear to auscultation. Breath sounds equal bilaterally. No wheezes , rales, or rhonchi. GASTROINTESTINAL: Abdomen soft, non-tender, nondistended. No hepato-splenomegaly , or palpable masses. No guarding. MUSCULOSKELETAL: Extremities without clubbing, cyanosis, or edema. No calf tenderness. Negative Homans sign bilaterally. NEUROLOGICAL: Awake and alert. No focal deficits noted. Motor and sensory grossly within normal limits. Five out of 5 muscle strength in all muscle groups. Normal speech. Laboratory Laboratory Tests Test 05/01/17 15:30 White Blood Count 10.1 Red Blood Count 5.16 Hemoglobin 14.0 Hematocrit 42.2 Mean Corpuscular Volume 81.8 Mean Corpuscular Hemoglobin 27.1 Mean Corpuscular Hemoglobin Concent 33.1 Red Cell Distribution Width 15.6 Platelet Count 307 Mean Platelet Volume 8.2 Neutrophils (%) (Auto) 47.0 Lymphocytes (%) (Auto) 44.1 Monocytes (%) (Auto) 7.4 Eosinophils (%) (Auto) 0.7 Basophils (%) (Auto) 0.8 Neutrophils # (Auto) 4.8 Lymphocytes # (Auto) 4.5 Monocytes # (Auto) 0.7 Eosinophils # (Auto) 0.1 Basophils # (Auto) 0.1 CBC Comment DIFF FINAL Differential Comment Prothrombin Time 9.9 Prothromb Time International Ratio 0.9 Activated Partial Thromboplast Time 23.6 Blood Urea Nitrogen 14 Creatinine 0.95 Random Glucose 110 Total Protein 7.8 Albumin 4.1 Calcium Level 9.8 Alkaline Phosphatase 176 Aspartate Amino Transf (AST/SGOT) 23 Alanine Aminotransferase (ALT/SGPT) 37 Total Bilirubin 0.4 Sodium Level 138 Potassium Level 3.2 Chloride Level 106 Carbon Dioxide Level 22.5 Anion Gap 10 Estimat Glomerular Filtration Rate 59 Total Creatine Kinase 119 Creatine Kinase MB 1.1 Troponin I LESS THAN 0.02 (Sharon Arango MD R1) Result Diagram: 05/01/17 1530 05/01/17 1530 Imaging Last Impressions Chest X-Ray 05/01/17 1552 Signed Impressions: Service Date/Time: Monday, May 01, 2017 16:03 - CONCLUSION: 1. No acute abnormality or significant interval change. Otto Olsen MD Course In the ED, received Compazine and phenrgan x1 for n/v diltiazemx1 for afib (Sharon Arango MD R1) Caprini VTE Risk Assessment Caprini VTE Risk Assessment: Mod/High Risk (score >= 2) Caprini Risk Assessment Model Point Value = 1 Point Value = 2 Point Value = 3 Point Value = 5 Age 41-60 Minor surgery BMI > 25 kg/m2 Swollen legs Varicose veins or History of unexplained or recurrent spontaneous Oral contraceptives or hormone replacement Sepsis (< 1 month) Serious lung disease, including pneumonia (< 1 month) Abnormal pulmonary function Acute myocardial infarction Congestive heart failure (< 1 month) History of inflammatory bowel disease Medical patient at bed rest Age 61-74 Arthroscopic surgery Major open surgery (> 45 min) Laparoscopic surgery (> 45 min) Malignancy Confined to bed (> 72 hours) Immobilizing plaster cast Central venous access Age >= 75 History of VTE Family history of VTE Factor V Leiden Prothrombin [id number] Lupus anticoagulant Anticardiolipin antibodies Elevated serum homocysteine Heparin-induced thrombocytopenia Other congenital or acquired thrombophilia Stroke (< 1 month) Elective arthroplasty Hip, pelvis, or leg fracture Acute spinal cord injury (< 1 month) Prophylaxis Regimen Total Risk Factor Score Risk Level Prophylaxis Regimen 0-1 Low Early ambulation 2 Moderate Order ONE of the following: *Sequential Compression Device (SCD) *Heparin 5000 units SQ BID 3-4 Higher Order ONE of the following medications: *Heparin 5000 units SQ TID *Enoxaparin/Lovenox 40 mg SQ daily (WT < 150 kg, CrCl > 30 mL/min) *Enoxaparin/Lovenox 30 mg SQ daily (WT < 150 kg, CrCl > 10-29 mL/min) *Enoxaparin/Lovenox 30 mg SQ BID (WT < 150 kg, CrCl > 30 mL/min) AND/OR *Sequential Compression Device (SCD) 5 or more Highest Order ONE of the following medications: *Heparin 5000 units SQ TID (Preferred with Epidurals) *Enoxaparin/Lovenox 40 mg SQ daily (WT < 150 kg, CrCl > 30 mL/min) *Enoxaparin/Lovenox 30 mg SQ daily (WT < 150 kg, CrCl > 10-29 mL/min) *Enoxaparin/Lovenox 30 mg SQ BID (WT < 150 kg, CrCl > 30 mL/min) AND *Sequential Compression Device (SCD) (Sharon Arango MD R1) Assessment and Plan Assessment and Plan Patient is a 67 y/o F w/hx of GERD presenting with nausea, vomiting, and new onset afib w/RVR following exposure to toxic chemicals. Plan to start diltiazem for rate control and considering anti-coagulation, will defer to cardiology at this time. Code Status DNR Discussed Condition With Dr. Benz (Sharon Arango MD R1) Attending Attestation THIS CASE WAS DISCUSSED WITH THE RESIDENT PHYSICIANS. I HAVE REVIEWED THE RECORD AND AGREE WITH THE ABOVE NOTE AND PLAN OF CARE WAS DISCUSSED. I HAVE AUTHORIZED THE ORDER FOR ADMISSION TO AN IN-PATIENT STATUS. (Jennifer Hodge MD) Problem List: (1) Atrial fibrillation with RVR ICD Codes: I48.91 - Unspecified atrial fibrillation Status: Resolved Plan: Tachycardic w/HR of 126 on admission, ECG shows afib w/RVR. Improvement in rate seen with diltiazem. CHADSVASC of 2 places patient at moderate risk for thrombus, consider anticoagulation. Differential: thyroid disease v drug use (cocaine/amphetamines/withdrawal) v AR - Cardiology consulted, appreciate recommendations - 2D echo ordered to evaluate for valvular disease or thrombi - Order UDS,TSH/T4, trend cardiac enzymes and ECG x2 - cardiac tele, heparin for DVT prophy (2) ST segment depression ICD Codes: R94.31 - Abnormal electrocardiogram [ECG] [EKG] Status: Acute Plan: Moderate ST depression seen in contiguous lateral leads on ECG on admission. Initial trop negative. Will trend ECG and cardiac enzymes x2 to rule out ACS (3) Nausea and vomiting ICD Codes: R11.2 - Nausea with vomiting, unspecified Status: Acute Plan: Received compazine and phenergan x1. Patient nauseous on interview. QT interval < 440ms. - Order Zofran PRN - NPO - IVF 140 mls/hr (4) GERD (gastroesophageal reflux disease) ICD Codes: K21.9 - Gastro-esophageal reflux disease without esophagitis Status: Chronic Plan: Hx of GERD, patient reports a hx of esophageal ulcers and stricture. Denies alcohol use. - IV protonix 40 mg Q24H (5) Hypokalemia ICD Codes: E87.6 - Hypokalemia Status: Acute Plan: K+ of 3.2 on admission, likely due to vomiting - IV KCl bolus - monitor w/daily CMP (6) Occupational exposure to chemicals ICD Codes: Z77.098 - Contact with and (suspected) exposure to other hazardous, chiefly nonmedicinal, chemicals Status: Acute Plan: Poison control contacted from the ED. Humidified air administered. - will provide O2 as needed - continue to monitor (7) FEN Plan: Fluids: IVF 140 mls/hr Electrolytes: supplement as needed, received KCl IV bolus x1 Nutrition: NPO GI prophy: Protonix IV DVT prophy: Heparin and SCDs (Sharon Arango MD R1) Physician Certification 2 Midnight Certification Type: Admission for Inpatient Services Order for Inpatient Services The services are ordered in accordance with Medicare regulations or non- Medicare payer requirements, as applicable. In the case of services not specified as inpatient-only, they are appropriately provided as inpatient services in accordance with the 2-midnight benchmark. Estimated LOS (days): 2 2 days is the estimated time the patient will need to remain in the hospital, assuming treatment plan goals are met and no additional complications. Post-Hospital Plan: Home (Sharon Arango MD R1) 2 Midnight Certification Type: Admission for Inpatient Services Post-Hospital Plan: Home (Jennifer Hodge MD) Problem Qualifiers (1) Nausea and vomiting: Sharon Arango MD R1 May 01, 2017 18:10 Jennifer Hodge MD May 02, 2017 13:07
[2017-05-01] MEDS ORDERED: ONDANSETRON HCL 4 MG/2 ML VIAL IVP PRN (18:30)
[2017-05-01] MEDS ORDERED: NALOXONE HCL 0.4 MG/ML AMP IV PUSH PRN (18:30)
[2017-05-01] MEDS ORDERED: SODIUM CHLORIDE 0.9% FLUSH 10 ML FLUSH IV FLUSH PRN (18:30)
[2017-05-01] MEDS ORDERED: BISACODYL 10 MG SUPP RECTAL PRN (18:30)
[2017-05-01] MEDS ORDERED: SENNOSIDES 8.6 MG TAB PO PRN (18:30)
[2017-05-01] MEDS ORDERED: MAGNESIUM HYDROXIDE SUSP 30 ML CUP PO PRN (18:30)
[2017-05-01] MEDS ORDERED: LACTULOSE SYRUP 20 GM/30 ML CUP PO PRN (18:30)
[2017-05-01] MEDS ORDERED: PANTOPRAZOLE SODIUM 40 MG VIAL IV PUSH SCH (19:00)
[2017-05-01] MEDS: POTASSIUM CHLOR 20 MEQ PREMIX 100 ML IV SCH ×2 (21:00→21:13)
[2017-05-01] MEDS: SODIUM CHLOR 0.9% 1000 ML INJ 1,000 ML IV SCH (21:13)
[2017-05-01] MEDS: HEPARIN SODIUM - SQ 10,000 UNITS/ML VIAL SQ SCH (21:16)
[2017-05-01] MEDS: DOCUSATE SODIUM 50 MG/SENNA 8.6 MG TAB PO SCH (21:16)
[2017-05-01] MEDS: SODIUM CHLORIDE 0.9% FLUSH 10 ML FLUSH IV FLUSH SCH (21:16)
[2017-05-01 23:00] LABS: BACTERIA, URINE MANY /hpf; BLOOD, URINE TRACE (NEG); COMMENT (UR) CULTURE INDICATED; CULTURE IF INDICATED CULTURE INDICATED; GLUCOSE,URINE NEG (NEG); KETONE, URINE NEG (NEG); MUCUS URINE FEW /lpf (OCC); NITRITE,URINE NEG (NEG); PH, URINE 5.5 (5.0-8.5); URINE COLOR LIGHT-YELLOW (YELLW/STRAW)
[2017-05-01 23:12] LABS: CREATINE KINASE 101 U/L (26-192); FREE T4 0.94 NG/DL (0.76-1.46)
[2017-05-01 23:25] LABS: CKMB 1.9 NG/ML (0.5-3.6)
[2017-05-02] VITALS: BP 127/60; PULSE 68; RESP 20; TEMP 98.2; O2SAT 96
[2017-05-02] MEDS: SODIUM CHLOR 0.9% 1000 ML INJ 1,000 ML IV SCH ×2 (03:30→08:39)
[2017-05-02 04:00] VITALS: BP 119/66; PULSE 61; RESP 18; TEMP 98.1; O2SAT 94
[2017-05-02 04:29] LABS: AUTOMATED NEUTROPHIL # 4.3 TH/MM3 (1.8-7.7); BASOPHIL % 0.6 % (0.0-2.0); EOSINOPHIL % 0.3 % (0.0-4.0); HEMATOCRIT 35.5 % (35.0-46.0); HEMO FLAGS DIFF FINAL; LYMPH % 24.8 % (9.0-44.0); LYMPHOCYTE # 1.6 TH/MM3 (1.0-4.8); MEAN CELL VOLUME 81.5 FL (80.0-100.0); MEAN CORPUSCULAR HEMOGLOBIN 27.4 PG (27.0-34.0); MEAN CORPUSCULAR HGB CONC 33.6 % (32.0-36.0); MONO % 6.7 % (0.0-8.0); NEUT % 67.6 % (16.0-70.0); PLATELET COUNT 243 TH/MM3 (150-450); RED BLOOD COUNT 4.36 MIL/MM3 (4.00-5.30); RED CELL DISTRIBUTION WIDTH 15.7 % (11.6-17.2); WHITE BLOOD COUNT 6.4 TH/MM3 (4.0-11.0)
[2017-05-02 05:01] LABS: ALKALINE PHOSPHATASE 137 U/L (45-117); ALT (GPT) 25 U/L (10-53); ANION GAP 6 MEQ/L (5-15); AST (GOT) 15 U/L (15-37); BICARBONATE 24.6 MEQ/L (21.0-32.0); BLOOD UREA NITROGEN 9 MG/DL (7-18); CHLORIDE 113 MEQ/L (98-107); GLOMERULAR FILTRATION RATE 73 ML/MIN (>89); POTASSIUM 4.2 MEQ/L (3.5-5.1); SODIUM (NA) 144 MEQ/L (136-145); TOTAL BILIRUBIN ADULT 0.3 MG/DL (0.2-1.0)
[2017-05-02] MEDS: HEPARIN SODIUM - SQ 10,000 UNITS/ML VIAL SQ SCH (06:50)
[2017-05-02 08:00] VITALS: BP 124/71; PULSE 69; RESP 20; TEMP 97.8; O2SAT 97
[2017-05-02] MEDS: SODIUM CHLORIDE 0.9% FLUSH 10 ML FLUSH IV FLUSH SCH (08:55)
[2017-05-02] MEDS: DOCUSATE SODIUM 50 MG/SENNA 8.6 MG TAB PO SCH (08:55)
[2017-05-02] MEDS ORDERED: DILTIAZEM-CD 120 MG CAP ER PO SCH (09:00)
--- NOTE | 2017-05-02 09:58 | MB ---
cc: CORNELIUS LIANG MD DATE OF CONSULTATION 05/02/2017 HISTORY This is a 67-year-old woman who is in the hospital for nausea and vomiting. 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 She feels that she got too much in the way of urethane fumes and began having significant nausea and vomiting. She was seen in the emergency department and was felt to have atrial fibrillation with a rapid ventricular response. She received diltiazem x1 with the improvement in her heart rate. No chest pain or shortness of breath had been present and no prior history of heart disease has been present. Certainly she has had no prior history of atrial fibrillation or palpitations. PAST MEDICAL HISTORY 1. Only significant for gastric ulcers. 2. She has also had esophageal dilatation. MEDICATIONS Only medication is pantoprazole. SOCIAL HISTORY She is a nonsmoker and nondrinker. She does not use recreational drugs. PAST MEDICAL HISTORY Otherwise unremarkable. PHYSICAL EXAMINATION GENERAL: On physical exam she is awake and alert. She is in no distress. VITAL SIGNS: Her blood pressure is 119/60. She is afebrile, pulse is 60 and regular. NECK: There is no neck vein distension. Carotids are normal. LUNGS: Clear. CARDIOVASCULAR: Exam reveals a regular rate and rhythm. No significant murmurs noted. There is no gallop. EXTREMITIES: No edema. ASSESSMENT The patient has had paroxysmal atrial fibrillation, possibly secondary to her industrial exposure. RECOMMENDATIONS 1. We will get an echocardiogram as per her routine workup. 2. At this point in time I do not feel she needs any further antiarrhythmics or anticoagulants. 3. Pending her echo can be safely discharged from a cardiovascular standpoint. Cornelius Liang MD DLW/SSB /7:41 AM /9:40 AM
[2017-05-02 10:00] VITALS: PULSE 67
[2017-05-02] MEDS ORDERED: ACETAMINOPHEN 325 MG TAB PO PRN (11:00)
--- NOTE | 2017-05-02 11:19 | HHI.PR ---
Subjective Remarks Pt overall feeling better today Tolerating oral intake She reports she still felt "woozy" this morning but is feeling much more "clear headed" this afternoon Pt in NSR on telemetry Objective Vitals Vital Signs Date Time Temp Pulse Resp B/P (MAP) Pulse Ox O2 Delivery O2 Flow Rate FiO2 05/02/17 08:00 97.8 69 20 124/71 (88) 97 05/02/17 04:00 98.1 61 18 119/66 (83) 94 05/02/17 00:00 98.2 68 20 127/60 (82) 96 05/01/17 23:12 66 05/01/17 20:00 98.6 73 19 120/58 (78) 99 05/01/17 19:10 97 Nasal Cannula 2.00 05/01/17 17:25 119 18 149/69 (95) 98 Nasal Cannula 2.00 05/01/17 16:43 106 20 139/81 (100) 97 Nasal Cannula 2.00 05/01/17 16:31 100 Nasal Cannula 2.00 05/01/17 15:56 100 Room Air 05/01/17 15:19 98.6 116 20 175/95 (121) 99 Result Diagram: 05/02/17 0405 05/02/17 0405 Other Results Laboratory Tests Test 05/01/17 15:30 05/01/17 21:50 05/01/17 21:57 05/02/17 04:05 White Blood Count 10.1 TH/MM3 6.4 TH/MM3 Red Blood Count 5.16 MIL/MM3 4.36 MIL/MM3 Hemoglobin 14.0 GM/DL 11.9 GM/DL Hematocrit 42.2 % 35.5 % Mean Corpuscular Volume 81.8 FL 81.5 FL Mean Corpuscular Hemoglobin 27.1 PG 27.4 PG Mean Corpuscular Hemoglobin Concent 33.1 % 33.6 % Red Cell Distribution Width 15.6 % 15.7 % Platelet Count 307 TH/MM3 243 TH/MM3 Mean Platelet Volume 8.2 FL 8.2 FL Neutrophils (%) (Auto) 47.0 % 67.6 % Lymphocytes (%) (Auto) 44.1 % 24.8 % Monocytes (%) (Auto) 7.4 % 6.7 % Eosinophils (%) (Auto) 0.7 % 0.3 % Basophils (%) (Auto) 0.8 % 0.6 % Neutrophils # (Auto) 4.8 TH/MM3 4.3 TH/MM3 Lymphocytes # (Auto) 4.5 TH/MM3 1.6 TH/MM3 Monocytes # (Auto) 0.7 TH/MM3 0.4 TH/MM3 Eosinophils # (Auto) 0.1 TH/MM3 0.0 TH/MM3 Basophils # (Auto) 0.1 TH/MM3 0.0 TH/MM3 CBC Comment DIFF FINAL DIFF FINAL Differential Comment Prothrombin Time 9.9 SEC Prothromb Time International Ratio 0.9 RATIO Activated Partial Thromboplast Time 23.6 SEC Blood Urea Nitrogen 14 MG/DL 9 MG/DL Creatinine 0.95 MG/DL 0.79 MG/DL Random Glucose 110 MG/DL 88 MG/DL Total Protein 7.8 GM/DL 5.9 GM/DL Albumin 4.1 GM/DL 3.1 GM/DL Calcium Level 9.8 MG/DL 8.4 MG/DL Alkaline Phosphatase 176 U/L 137 U/L Aspartate Amino Transf (AST/SGOT) 23 U/L 15 U/L Alanine Aminotransferase (ALT/SGPT) 37 U/L 25 U/L Total Bilirubin 0.4 MG/DL 0.3 MG/DL Sodium Level 138 MEQ/L 144 MEQ/L Potassium Level 3.2 MEQ/L 4.2 MEQ/L Chloride Level 106 MEQ/L 113 MEQ/L Carbon Dioxide Level 22.5 MEQ/L 24.6 MEQ/L Anion Gap 10 MEQ/L 6 MEQ/L Estimat Glomerular Filtration Rate 59 ML/MIN 73 ML/MIN Total Creatine Kinase 119 U/L 101 U/L 88 U/L Creatine Kinase MB 1.1 NG/ML 1.9 NG/ML Troponin I LESS THAN 0.02 NG/ML 0.02 NG/ML 0.03 NG/ML Lipase 220 U/L Urine Color LIGHT-YELLOW Urine Turbidity CLEAR Urine pH 5.5 Urine Specific Center 1.008 Urine Protein NEG mg/dL Urine Glucose (UA) NEG mg/dL Urine Ketones NEG mg/dL Urine Occult Blood TRACE Urine Nitrite NEG Urine Bilirubin NEG Urine Urobilinogen LESS THAN 2.0 MG/DL Urine Leukocyte Esterase TRACE Urine RBC 1 /hpf Urine WBC 2 /hpf Urine Bacteria MANY /hpf Urine Mucus FEW /lpf Microscopic Urinalysis Comment CULTURE INDICATED Urine Opiates Screen NEG Urine Barbiturates Screen NEG Urine Amphetamines Screen NEG Urine Benzodiazepines Screen NEG Urine Cocaine Screen NEG Urine Cannabinoids Screen NEG Procalcitonin 0.08 ng/mL Free Thyroxine 0.94 NG/DL Thyroid Stimulating Hormone 3rd Gen 4.040 uIU/ML Imaging Last Impressions Chest X-Ray 05/01/17 1552 Signed Impressions: Service Date/Time: Monday, May 01, 2017 16:03 - CONCLUSION: 1. No acute abnormality or significant interval change. Otto Olsen MD Objective Remarks General: NAD, AAOx3 Chest: CTA Cardiac: Regular Abd: +Bs, soft ND/NT Ext: No edema A/P Problem List: (1) Nausea and vomiting ICD Codes: R11.2 - Nausea with vomiting, unspecified Status: Acute Plan: - Pt is a 67 y/o female with GERD who presented to the ED with nausea, vomiting , and tachycardia. 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 - In the ED she was noted to be in A. fib RVR and was given Cardizem 10mg IV and initially admitted to the [facility] with consultation to Cardiology - Following admission pt was given IVF and antiemetics with improvement in her clinical status - Troponins were trended and have been negative. - She was also started on Cardizem 120mg po daily this morning. - Pt was seen by Cardiology and it was felt that the paroxysmal atrial fibrillation, possibly secondary to her industrial exposure. She was not recommended any further antiarrhythmics or anticoagulants - 2D echo ordered - Protonix 40mg daily - Antiemetics PRN - Supportive care - DVT prophylaxis with Heparin - Once 2D echo is completed and pt tolerating diet we will discharge to home to followup with PCP and Cardiology to discuss echo results. (2) Atrial fibrillation with RVR ICD Codes: I48.91 - Unspecified atrial fibrillation Status: Resolved Plan: - see above (3) Occupational exposure to chemicals ICD Codes: Z77.098 - Contact with and (suspected) exposure to other hazardous, chiefly nonmedicinal, chemicals Status: Acute Plan: - See above (4) Hypokalemia ICD Codes: E87.6 - Hypokalemia Status: Acute Plan: - Likely secondary to vomiting, improved with IVF/supplementation (5) GERD (gastroesophageal reflux disease) ICD Codes: K21.9 - Gastro-esophageal reflux disease without esophagitis Status: Chronic Plan: - PPI Assessment and Plan Patient examined. Assessment and plan formulated with Carly Palacios PA-C. I agree with the above. Problem Qualifiers (1) Nausea and vomiting: Carly Palacios May 02, 2017 11:19 Rupesh Hancock DO May 07, 2017 23:23
--- NOTE | 2017-05-02 11:22 | HHI.DCPOC ---
Discharge Care Plan Diagnosis: (1) Occupational exposure to chemicals (2) Atrial fibrillation with RVR (3) GERD (gastroesophageal reflux disease) (4) Hypokalemia (5) Nausea and vomiting Goals to Promote Your Health * To prevent worsening of your condition and complications * To maintain your health at the optimal level Directions to Meet Your Goals Take your medications as prescribed Follow your dietary instruction Follow activity as directed Keep your appointments as scheduled Take your immunizations and boosters as scheduled If your symptoms worsen call your PCP, if no PCP go to Urgent Care Center or Emergency Room Smoking is Dangerous to Your Health. Avoid second hand smoke Call the 24-hour hour crisis hotline for domestic abuse at Carly Palacios May 02, 2017 11:22 Rupesh Hancock DO May 07, 2017 23:23
[2017-05-02 12:00] VITALS: BP 122/78; PULSE 74; RESP 18; TEMP 97.9; O2SAT 95
[2017-05-02 16:00] VITALS: BP 148/72; PULSE 59; RESP 18; TEMP 97.9; O2SAT 96
--- NOTE | 2017-05-02 18:35 | ECHRPT ---
Indication: Atrial Fib CONCLUSIONS The left ventricular systolic function is normal with an estimated ejection fraction in the range of 65-70%. Normal left ventricular size. Wall thickness is normal. No regional wall motion abnormalities are present. Mild to moderate mitral valve regurgitation. No aortic valve stenosis. Trace AI. There is trace tricuspid valve regurgitation. The estimated pulmonary arterial pressure is 29.9 mmHg. Trivial pulmonary valve regurgitation. BP: 127 / 60 HR: 68 Rhythm: Sinus MEASUREMENTS (Male / Female) Normal Values Technical Quality:Good 2D ECHO LV Diastolic Diameter PLAX 4.2 cm 4.2 - 5.9 / 3.9 - 5.3 cm LV Systolic Diameter PLAX 2.6 cm IVS Diastolic Thickness 1.0 cm 0.6 - 1.0 / 0.6 - 0.9 cm LVPW Diastolic Thickness 1.0 cm 0.6 - 1.0 / 0.6 - 0.9 cm LV Relative Wall Thickness 0.5 RV Internal Dim ED PLAX 2.2 cm LVOT Diameter 1.8 cm LA Systolic Diameter LX 3.2 cm 3.0 - 4.0 / 2.7 - 3.8 cm M-MODE Aortic Root Diameter MM 2.8 cm AV Cusp Separation MM 1.9 cm DOPPLER AV Peak Velocity 130.0 cm/s AV Peak Gradient 6.8 mmHg LVOT Peak Velocity 106.0 cm/s LVOT Peak Gradient 4.5 mmHg AV Area Cont Eq pk 2.1 cm MV Area PHT 3.6 cm Mitral E Point Velocity 99.2 cm/s Mitral A Point Velocity 56.3 cm/s Mitral E to A Ratio 1.8 LV E' Lateral Velocity 10.3 cm/s Mitral E to LV E' Lateral Ratio 9.6 LV E' Septal Velocity 8.6 cm/s Mitral E to LV E' Septal Ratio 11.6 TR Peak Velocity 223.0 cm/s TR Peak Gradient 19.9 mmHg Right Atrial Pressure 10.0 mmHg Pulmonary Artery Systolic Pressu 29.9 mmHg Right Ventricular Systolic Press 29.9 mmHg PV Peak Velocity 100.0 cm/s PV Peak Gradient 4.0 mmHg FINDINGS LEFT VENTRICLE The left ventricular systolic function is normal with an estimated ejection fraction in the range of 65-70%. Normal left ventricular size. Wall thickness is normal. No regional wall motion abnormalities are present. RIGHT VENTRICLE Normal right ventricular size and systolic function. LEFT ATRIUM The left atrial size is normal. RIGHT ATRIUM The right atrial size is normal. ATRIAL SEPTUM Normal atrial septal thickness without atrial level shunting by limited color doppler interrogation. AORTA The aortic root and proximal ascending aorta are normal in size on limited imaging. MITRAL VALVE Structurally normal mitral valve. Mild mitral valve regurgitation. AORTIC VALVE Trileaflet aortic valve. No aortic valve stenosis. Trace AI. TRICUSPID VALVE Structurally normal tricuspid valve. There is trace tricuspid valve regurgitation. The estimated pulmonary arterial pressure is 29.9 mmHg. PULMONARY VALVE Trivial pulmonary valve regurgitation. VESSELS The inferior vena cava is normal in size. PERICARDIUM No pericardial effusion. Raghavendra De La Vega MD, FACC, FSCAI (Electronically Signed) Final Date:02 May 2017 18:33
--- NOTE | 2017-05-03 07:52 | EKG ---
Date Performed: 05/01/2017 Time Performed: 15:50:20 PTAGE: 67 years EKG: ATRIAL FIBRILLATION WITH RAPID VENTRICULAR RESPONSE CONSIDER ANTEROLATERAL ISCHEMIA ABNORMA L QRS-T ANGLE ABNORMAL ECG Compared to PREVIOUS TRACING , the patient is now in atrial fibrillation with anterolateral ischemic changes. PREVIOUS TRACING 02/10/2017 06.54.52 DOCTOR: Raghavendra De La Vega Interpretating Date/Time 05/03/2017 07:50:38
--- NOTE | 2017-05-03 07:53 | EKG ---
Date Performed: 05/02/2017 Time Performed: 03:56:34 PTAGE: 67 years EKG: Sinus rhythm Poor R wave progression - probable normal variant Inferior T wave changes are nonspecific Low QRS vo ltages in precordial leads Borderline ECG Since PREVIOUS TRACING , no significant change noted PREVIOUS TRACIN05/01/2017 21.14 DOCTOR: Raghavendra De La Vega Interpretating Date/Time 05/03/2017 07:51:18
--- NOTE | 2017-05-03 07:53 | EKG ---
Date Performed: 05/01/2017 Time Performed: 21:14:17 PTAGE: 67 years EKG: Sinus rhythm NORMAL ECG Compared to PREVIOUS TRACING the patient is now in normal sinus rhythm and anterolateral ischemic ch anges have resolved. PREVIOUS TRACIN05/01/2017 15.50 DOCTOR: Raghavendra De La Vega Interpretating Date/Time 05/03/2017 07:51:09
[2017-05-03] MEDS ORDERED: MECL-62 PO (11:00)
[2017-05-03] MEDS ORDERED: ZOFR4TAB3 SL (13:00)
== END 2017-05-02 16:55 | disposition home or self-care (01) ==
LOC: NEPC 15:04 → NEDA 18:13 → N04B 19:13
PROVIDERS: ADMIT Hospitalist; ATTEND Hospitalist
DX: I48.0 Paroxysmal atrial fibrillation (principal); I10 Essential (primary) hypertension; E87.6 Hypokalemia; N39.0 Urinary tract infection, site not specified; B96.20 Unspecified Escherichia coli [E. coli] as the cause of diseases classified elsewhere; K21.9 Gastro-esophageal reflux disease without esophagitis; R11.2 Nausea with vomiting, unspecified; Z66 Do not resuscitate; Z87.11 Personal history of peptic ulcer disease; Z77.098 Contact with and (suspected) exposure to other hazardous, chiefly nonmedicinal, chemicals
CPT/HCPCS: 71010; 80053; 80307; 81001; 82550; 82552; 82948; 83690; 84145; 84439; 84443; 84484; 85025; 85610; 85730; 87077; 87086; 87186; 93005; 93306; 94664; 96361; 96372; 96374; 96375; 99291; C9113; G0378; J0780; J1644; J2405; J2550; J3480; J7030

== ENCOUNTER 2017-05-03 10:38 | Emergency (ER) | payer MEDICARE ==
[~2017-05-03] VITALS: Ht 167.6 cm; Wt 85.0 kg
[~2017-05-03 10:38] MED LIST changes: -COLY4000S PO
[2017-05-03 10:40] VITALS: BP 162/82; PULSE 70; RESP 16; TEMP 98.5; O2SAT 99
[2017-05-03] MEDS ORDERED: MECL-62 PO (11:00)
[2017-05-03 11:07] VITALS: BP 139/80; PULSE 80; RESP 19; O2SAT 98
[2017-05-03] MEDS ORDERED: PROCHLORPERAZINE INJ 10 MG/2 ML VIAL IV PUSH ONE (11:15)
[2017-05-03] MEDS ORDERED: diphenhydrAMINE HCL 50 MG/ML VIAL IV PUSH ONE (11:15)
--- NOTE | 2017-05-03 11:46 | PD ---
HPI . Nausea Chief Complaint: GI Complaint Time Seen by Provider: 11:06 Travel History International Travel<30 days: No Contact w/Intl Traveler<30days: No Traveled to known affect area: No History of Present Illness HPI This patient presents with a chief complaint of nausea. Onset was this morning. She has subsequently developed vertigo. She states that she was on her way to the hospital for evaluation of the nausea that she developed vertigo. She states that she was coming here for the nausea because she was just discharged yesterday following an episode of atrial fibrillation. When she awakened today with nausea, she was worried about possible atrial fibrillation again. Her symptoms are exacerbated by opening her eyes and any sort of movement. Her symptoms are severe. They have been continuous since awakening this morning. PFSH Past Medical History Atrial Fibrillation: Yes Autoimmune Disease: No Cancer: No Cardiovascular Problems: No Diminished Hearing: No Endocrine: No Gastrointestinal Disorders: Yes (ESOPHAGEAL STRICTURE, STOMACH ULCERS) Hypertension: Yes Immune Disorder: No Musculoskeletal: No Neurologic: No Psychiatric: No Respiratory: No Tetanus Vaccination: Unknown Influenza Vaccination: Yes ?: Not Menopausal: Yes : 4 Para: 4 Past Surgical History Other Surgery: Yes (ESOPHAGEAL STRETCHING) Social History Alcohol Use: No Tobacco Use: No Substance Use: No Allergies-Medications (Allergen,Severity, Reaction): Coded Allergies: No Known Allergies (Verified , 05/03/17) Reported Meds & Prescriptions Reported Meds & Active Scripts Active Reported Meclizine (Meclizine HCl) 25 Mg Tab 25 Mg PO DIRECTED PRN Pantoprazole (Pantoprazole Sodium) 40 Mg Tab 40 Mg PO DAILY Review of Systems Except as stated in HPI: all other systems reviewed are Neg HENT: Positive: Vertigo Gastrointestinal: Positive: Nausea, Vomiting Physical Exam Narrative GENERAL: Patient is sitting on the bed leaning forward with an emesis bag in her lap. She does not want to move her head or open her eyes. SKIN: Warm and dry. HEAD: Normocephalic/atraumatic. EYES: Pupils are equal. Extraocular movements are intact. NECK: Supple. CARDIOVASCULAR: She is currently in a sinus rhythm with a rate of 96. RESPIRATORY: Nonlabored respirations. MUSCULOSKELETAL: Atraumatic. NEUROLOGICAL: Nonfocal. PSYCHIATRIC: Appropriate mood and affect. Data Data Last Documented VS Vital Signs Date Time Temp Pulse Resp B/P (MAP) Pulse Ox O2 Delivery O2 Flow Rate FiO2 05/03/17 11:07 80 19 139/80 (99) 98 Room Air 05/03/17 10:40 98.5 Orders Orders Electrocardiogram (05/03/17 ) Diphenhydramine Inj (Benadryl Inj) (05/03/17 11:15) Prochlorperazine Inj (Compazine Inj) (05/03/17 11:15) MDM Medical Decision Making Medical Screen Exam Complete: Yes Emergency Medical Condition: Yes Interpretation(s) EKG has a lot of artifact. However, she is in a sinus rhythm and there is no ST segment elevation or depression. Differential Diagnosis Differential diagnosis of dizziness includes but is not limited to vertigo, dehydration, acute blood loss, sepsis, ACS Narrative Course This patient presents with classic vertigo. I am treating her with IV Compazine and Benadryl. This patient's symptoms have been controlled with Compazine and Benadryl. She will be discharged home. Diagnosis Primary Impression: Vertigo Patient Instructions: Benign Paroxysmal Positional Vertigo (DC), General Instructions Med/Other Pt SpecificInfo: Prescription(s) given Scripts Ondansetron Odt (Zofran Odt) 4 Mg Tab 4 MG SL Q8HR Y for Nausea/Vomiting, #15 TAB May substitute non-ODT form. Prov: Candace Doshi MD 05/03/17 Disposition: 01 DISCHARGE HOME Condition: Stable Candace Doshi MD May 03, 2017 11:46
[2017-05-03] MEDS ORDERED: ZOFR4TAB3 SL (13:00)
[2017-05-03 13:15] VITALS: BP 141/77
--- NOTE | 2017-05-04 17:32 | EKG ---
Date Performed: 05/03/2017 Time Performed: 11:13:11 PTAGE: 67 years EKG: Sinus rhythm WITH FREQUENT VENTRICULAR PREMATURE COMPLEXES LOW QRS VOLTAGE IN PRECORDIAL LEADS ABNORMAL QRS-T ANG LE SINCE PRIOR TRACING THE NONSPECIFIC INFEROLATERAL T WAVE CHANGES ARE NEW. THE FREQUENT PVC'S ARE N EW. Clinical correlation is recommended to asses serial changes. ABNORMAL ECG PREVIOUS TRACING : 05/02/2017 03.56 DOCTOR: Anjali Kasper Interpretating Date/Time 05/04/2017 17:30:50
== END 2017-05-03 14:20 | disposition home or self-care (01) ==
LOC: NEPD 10:38
DX: R42 Dizziness and giddiness (principal); R11.2 Nausea with vomiting, unspecified; R94.31 Abnormal electrocardiogram [ECG] [EKG]; I49.3 Ventricular premature depolarization; I48.91 Unspecified atrial fibrillation; K22.2 Esophageal obstruction; I10 Essential (primary) hypertension; Z79.899 Other long term (current) drug therapy
CPT/HCPCS: 93005; 96374; 96375; 99284; J0780; J1200

== ENCOUNTER 2017-05-16 07:54 | Emergency (ER) | payer MEDICARE ==
[~2017-05-16] VITALS: Ht 167.6 cm; Wt 87.0 kg
[~2017-05-16 07:54] MED LIST changes: +MECL-62 PO
[2017-05-16 07:59] VITALS: BP 157/86; PULSE 72; RESP 15; TEMP 97.6; O2SAT 98
[2017-05-16] MEDS ORDERED: PROCHLORPERAZINE INJ 10 MG/2 ML VIAL IV PUSH ONE (08:15)
[2017-05-16] MEDS ORDERED: diphenhydrAMINE HCL 50 MG/ML VIAL IV PUSH ONE (08:15)
--- NOTE | 2017-05-16 09:07 | PD ---
HPI . Dizziness Chief Complaint: Abdominal Pain Time Seen by Provider: 08:13 Travel History International Travel<30 days: No Contact w/Intl Traveler<30days: No Traveled to known affect area: No History of Present Illness HPI This patient presents with chief complaint of dizziness. Onset was at 1:30 this morning. Symptoms have been constant since that time. Dizziness is exacerbated by any sort of movement. She has had some associated nausea and vomiting. She denies any abdominal pain. She does, however, believe that her symptoms are secondary to gallbladder disease. This patient has had a previous similar history. PFSH Past Medical History Atrial Fibrillation: Yes Autoimmune Disease: No Cancer: No Cardiovascular Problems: No Diminished Hearing: No Endocrine: No Gastrointestinal Disorders: Yes (ESOPHAGEAL STRICTURE, STOMACH ULCERS) Hypertension: Yes Immune Disorder: No Musculoskeletal: No Neurologic: No Psychiatric: No Respiratory: No ?: Not Menopausal: Yes : 4 Para: 4 Past Surgical History Other Surgery: Yes (ESOPHAGEAL STRETCHING) Social History Alcohol Use: No Tobacco Use: No Substance Use: No Allergies-Medications (Allergen,Severity, Reaction): Coded Allergies: No Known Allergies (Verified Adverse Reaction, Unknown, 05/16/17) Reported Meds & Prescriptions Reported Meds & Active Scripts Active Zofran Odt (Ondansetron Odt) 4 Mg Tab 4 Mg SL Q8HR PRN May substitute non-ODT form. Reported Meclizine (Meclizine HCl) 25 Mg Tab 25 Mg PO DIRECTED PRN Pantoprazole (Pantoprazole Sodium) 40 Mg Tab 40 Mg PO DAILY Review of Systems Except as stated in HPI: all other systems reviewed are Neg General / Constitutional: No: Fever, Chills HENT: Positive: Vertigo Gastrointestinal: Positive: Nausea, Vomiting, No: Abdominal Pain Physical Exam Narrative GENERAL: Patient is sitting on side of the bed laying forward with her eyes closed. She is reluctant to open her eyes or move her head. SKIN: warm/dry. Normal color. HEAD: Normocephalic. Atraumatic. EYES: Pupils equal and round. No scleral icterus. No injection or drainage. ENT: No nasal bleeding or discharge. Mucous membranes pink and moist. NECK: Trachea midline. Full range of motion without pain.. CARDIOVASCULAR: Regular rate and rhythm. RESPIRATORY: No accessory muscle use. Clear to auscultation. Breath sounds equal bilaterally. GASTROINTESTINAL: Abdomen soft. Nontender. Bowel sounds present. Nondistended. MUSCULOSKELETAL: No obvious deformities. NEUROLOGICAL: Awake and alert. No obvious cranial nerve deficits. Motor grossly within normal limits. Normal speech. PSYCHIATRIC: Appropriate mood and affect; insight and judgment normal. Data Data Last Documented VS Vital Signs Date Time Temp Pulse Resp B/P (MAP) Pulse Ox O2 Delivery O2 Flow Rate FiO2 05/16/17 07:59 97.6 72 15 157/86 (109) 98 Orders Orders ^ Saline Lock (05/16/17 08:13) Prochlorperazine Inj (Compazine Inj) (05/16/17 08:15) Diphenhydramine Inj (Benadryl Inj) (05/16/17 08:15) Lorazepam Inj (Ativan Inj) (05/16/17 09:15) Ondansetron Inj (Zofran Inj) (05/16/17 09:15) MDM Medical Decision Making Medical Screen Exam Complete: Yes Emergency Medical Condition: Yes Medical Record Reviewed: Yes (this patient was seen here within the last week or so with the same thing. She was treated with Compazine and Benadryl with excellent relief of her symptoms. She has had a recent CT of her head which was negative.) Differential Diagnosis Differential diagnosis of dizziness includes but is not limited to vertigo, dehydration, acute blood loss, sepsis, ACS Narrative Course This patient presents with a chief complaint of dizziness associated with nausea and vomiting. Her symptoms sound like vertigo. The patient was initially treated with Compazine and Benadryl. She reported minimal relief of her symptoms although she looks much more comfortable. I have added Zofran and Ativan. This patient is now resting comfortably. She will be discharged home. Diagnosis Primary Impression: Vertigo Additional Impression: Nausea and vomiting Qualified Codes: R11.2 - Nausea with vomiting, unspecified Patient Instructions: Benign Paroxysmal Positional Vertigo (DC), General Instructions Additional Instructions: Zofran and meclizine as needed for dizziness and nausea Med/Other Pt SpecificInfo: Prescription(s) given Disposition: 01 DISCHARGE HOME Condition: Stable Candace Doshi MD May 16, 2017 09:07
[2017-05-16] MEDS ORDERED: ONDANSETRON HCL 4 MG/2 ML VIAL IV PUSH ONE (09:15)
[2017-05-16] MEDS ORDERED: LORazepam 2 MG/ML VIAL IV PUSH ONE (09:15)
== END 2017-05-16 11:03 | disposition home or self-care (01) ==
LOC: NEPE 07:54
DX: R42 Dizziness and giddiness (principal); R11.2 Nausea with vomiting, unspecified; I48.91 Unspecified atrial fibrillation; I10 Essential (primary) hypertension; Z79.899 Other long term (current) drug therapy
CPT/HCPCS: 96374; 96375; 99284; J0780; J1200; J2060; J2405